=== PATIENT | male | born 1975 | race Caucasian/White ===

== ENCOUNTER 2024-08-30 13:07 | Emergency (ER) | payer BC, SELFPAY ==
[2024-08-30 13:43] LABS: % Basophils 0.5 % (0-2); % Eosinophils 1.1 % (0-6); % Immature Granulocytes 0.2 % (0-0.5); % Lymphocytes 32.7 % (20.5-51.1); % Monocytes 6.9 % (1.7-9.3); % Neutrophils 58.6 % (42.2-75.2); Absolute Eosinophils 0.1 10^3/uL (0-0.7); Absolute Lymphocytes 1.8 10^3/uL (1.2-3.4); Absolute Monocytes 0.4 10^3/uL (0.1-0.6); Absolute Neutrophils 3.3 10^3/uL (1.4-6.5); Hematocrit 45.3 % (39.0-52.0); Hemoglobin 15.2 g/dL (13.0-18.0); Mean Corp Hgb Conc. 33.6 g/dL (33.0-37.0); Mean Corpuscular Volume 86.3 fL (80.0-94.0); Mean Platelet Volume 9.7 fL (7.4-10.4); Nucleated Red Blood Cells % 0 % (-); Platelet Count 315 10^3/uL (130-400); Red Blood Cell Count 5.25 10^6/uL (4.70-6.10); Red Cell Dist. Width 13.3 % (11.5-14.5); White Blood Cell Count 5.6 10^3/uL (4.8-10.8)
[2024-08-30 13:56] LABS: ALT (SGPT) 14 U/L (0-50); AST (SGOT) 16 U/L (17-59); Albumin 4.5 g/dl (3.5-5.0); Alkaline Phosphatase 49 U/L (38-126); Blood Urea Nitrogen 11 mg/dl (9-20); Calcium 10.1 mg/dl (8.4-10.2); Carbon Dioxide 30 mmol/L (22-30); Chloride 103 mmol/L (98-107); Glucose 82 mg/dl (70-99); Potassium 4.5 mmol/L (3.5-5.1); Sodium 141 mmol/L (135-145); Total Bilirubin 0.9 mg/dl (0.2-1.3); eGFR > 60.00
--- NOTE | 2024-08-30 15:41 | ED.GENMED ---
History of Present Illness
<Oh Melo, DO - Last Filed: 08/30/24 15:43>
General
Chief Complaint: Male Genito-Urinary Symptoms
Time Seen by Provider: 08/30/24 15:31
<Jolie Bhagat [employer] - Last Filed: 08/31/24 10:08>
General
Source: patient
Exam Limitations: none
Nursing documentation reviewed up to this point in time: agreed with
History of Present Illness
History of Present Illness:
49 yo male with hx R inguinal hernia repaired 2004 and 2006(not at this hospital), was laying on bed with right leg hanging over the bed with foot on floor, lifted his leg up onto the bed and felt a sudden searing pain in R groin similar to when the
hernia ruptured in the past. Denies trouble urinating. Pain 03/13 now laying on stretcher. He states he feels like it 'went back in.'
Past History
<Jolie Bhagat, [employer] - Last Filed: 08/31/24 10:08>
Past History
ED Past Medical History: Asthma and Other (ADHD)
ED Past Surgical History: Orthopedic (amp right 3rd digit), Urological (Vasectomy) and Other (right hernia repair x 2)
Social History
Tobacco: Non-smoker
Alcohol: Occasional
Drug: None
Personal:
Living: with family
Employment: Employed
Family History
Family History: Other (Family history of diverticulosis)
Review of Systems
<Jolie Bhagat, [employer] - Last Filed: 08/31/24 10:08>
Review of Systems
Allergies reviewed?: Yes
All Other Systems: ROS reviewed and negative except as documented in HPI and ROS
ABD/GI: Denies abdominal pain or nausea
: Denies dysuria or difficulty voiding
Skin: Reports no symptoms
Phy Exam
<Jolie Bhagat, [employer] - Last Filed: 08/31/24 10:08>
Physical Exam
Physical Exam:
GENERAL: No acute distress. A&Ox3.
CONSTITUTIONAL: Afebrile.
RESPIRATORY: Regular respirations, nonlabored, lungs clear.
CARDIOVASCULAR: Regular rate and rhythm, no murmurs, no rubs.
GI: Soft, nontender, normal BS
: Normal-appearing external genitalia, mildly tender right testicle, mildly tender right mons pubis, no palpable masses
MUSCULOSKELETAL: Moves with ease. Well perfused.
SKIN: Warm, dry, pink
PSYCH: Normal mood and affect. Well kept, interactive and appropriate
NEUROLOGIC: Awake, alert and oriented. No focal neurological deficits
Course
<Oh Melo, DO - Last Filed: 08/30/24 15:43>
Orders/Labs/Results
Orders:
Orders
08/30/24 13:29
Complete Blood Count/With Diff Urgent
Comprehensive Metabolic Panel Urgent
08/30/24 15:39
US Groin (Imaging Only) RT Urgent
Comment:
Reason For Exam: feels his R inguinal hernia has popped out
Abnormal Lab Results
08/30/24
13:29
AST 16 L U/L
(17-59)
08/30/24 13:29
08/30/24 13:29
Vital Signs
Initial and Last Documented VS:
Initial Vital Signs
Temp Pulse Resp Pulse Ox
98.6 F 78 18 100
08/30/24 13:20 08/30/24 13:20 08/30/24 13:20 08/30/24 13:20
Last Documented Vital Signs
Temp Pulse Resp BP Pulse Ox
99.2 F 66 18 130/79 98
08/30/24 17:00 08/30/24 17:00 08/30/24 17:00 08/30/24 17:00 08/30/24 17:00
<Jolie Bhagat [employer] - Last Filed: 08/31/24 10:08>
Orders/Labs/Results
Orders:
Orders
08/30/24 13:29
Complete Blood Count/With Diff Urgent
Comprehensive Metabolic Panel Urgent
08/30/24 15:39
US Groin (Imaging Only) RT Urgent
Comment:
Reason For Exam: feels his R inguinal hernia has popped out
Abnormal Lab Results
08/30/24
13:29
AST 16 L U/L
(59)
08/30/24 13:29
08/30/24 13:29
Vital Signs
Initial and Last Documented VS:
Initial Vital Signs
Temp Pulse Resp Pulse Ox
98.6 F 78 18 100
08/30/24 13:20 08/30/24 13:20 08/30/24 13:20 08/30/24 13:20
Last Documented Vital Signs
Temp Pulse Resp BP Pulse Ox
99.2 F 66 18 130/79 98
08/30/24 17:00 08/30/24 17:00 08/30/24 17:00 08/30/24 17:00 08/30/24 17:00
<Jolie Bhagat [employer] - Last Filed: 08/31/24 10:08>
MDM/Problems Addressed
MDM/Problems Addressed:
49 yo male with hx R inguinal hernia repaired 2004 and 2006(not at this hospital), was laying on bed with right leg hanging over the bed with foot on floor, lifted his leg up onto the bed and felt a sudden searing pain in R groin similar to when the
hernia ruptured in the past. Denies trouble urinating. Pain 03/13 now laying on stretcher. He states he feels like it 'went back in.'
CBC, CMP normal
At this time, no significant pain with palpation, no swelling
Dr. Melo in, examined pt and agrees with US, referral to general surgery
4:45 p.m.
US report: IMPRESSION:
No sonographic evidence of right inguinal hernia.
Copy of report given to pt. Referral to general surgery as needed
At discharge pt observed ambulating out with normal gait.
<Jolie Bhagat, [employer] - Last Filed: 08/31/24 10:08>
*Critical Care Note
Total Time (30-74mins, 75-104mins- exclusive of procedures): Not Applicable
ED Attending Note
<Oh Melo, DO - Last Filed: 08/30/24 15:43>
ED Attending Note
Patient seen and examined by attending physician: Yes
ED Attending Note:
I reviewed and agree with history and treatment plan by Kesha Bhagat. My exam revealed 49-year-old male, with no palpable mass or tenderness in right lower quadrant, mild tenderness in the right inguinal canal. Will obtain ultrasound to evaluate
possible hernia.
<Jolie Bhagat [employer] - Last Filed: 08/31/24 10:08>
-
Portions of this chart may have been created with voice recognition software.� Occasional wrong word or��sound alike� substitutions may have occurred due to the inherent limitations of voice recognition software.
Discharge Plan
Departure
Patient Disposition: Home (Routine Discharge)
Date of Disposition: 08/30/24
Time of Disposition: 16:47
Patient with high blood pressure during this ER visit?: No
Condition: Good
Discharge Problem:
Right groin pain
Instructions: Groin hernias, Groin Strain (DC)
Prescriptions:
No Action
sertraline 100 MG tablet
150 mg PO DAILY
dexmethylphenidate [Focalin] 10 MG tablet
10 mg PO BID
lisdexamfetamine [Vyvanse] 40 MG capsule
40 mg PO DAILY
multivitamin-minerals no.55 [Centrum Flavor Burst Adult] 1 EACH tablet,chewable
1 tab PO DAILY
pantoprazole 40 MG tablet,delayed release (DR/EC)
40 mg PO DAILY
oxymetazoline [Afrin Sinus (oxymetazoline)] 30 SPRAYS/15 ML spray,non-aerosol
2 sprays intranasal PRN PRN (Reason: congestion)
hydrocodone-acetaminophen 1 TABLET tablet
1 tab PO Q4HPRN PRN (Reason: moderate to severe pain) Qty: 25 0RF
acetaminophen 325 MG tablet
650 mg PO Q4HWA 0RF
Referrals:
Don Mills MD [Active] - As needed
Paulina Ramirez MD [Family Provider] -
Activity Restrictions/Additional Instructions:
As we discussed, there is no evidence of a right inguinal hernia on your ultrasound.
Ibuprofen 600 mg (with food) every 6 hours as needed for pain.
Avoid lifting over 5 lbs until the area is better
Wear supportive underwear
I have given you the name of a general surgeon if you feel your hernia is bothering you.
Interventions
Interventions:
*Risk Screen - Suicide Last Done: 08/30/24 13:20
*General Assessment Last Done: 08/30/24 13:20
*Neglect/Abuse Screening Last Done: 08/30/24 13:20
*Nursing Disposition Last Done: 08/30/24 17:12
ED-Male Genitourinary Assessment Last Done: 08/30/24 15:30
Discharge Date and Time
Discharge Date/Time: 08/30/24 17:13
Print Language: TELUGU
[2024-08-30 17:00] VITALS: BP 130/79
== END 2024-08-30 17:13 | disposition home or self-care (01) ==
LOC: EMR 13:07
PROVIDERS: Emergency Medicine; EMERGENCY PHYSICIAN Emergency Medicine; FAMILY PHYSICIAN Family Medicine
DX: R10.31 Right lower quadrant pain (principal); F90.9 Attention-deficit hyperactivity disorder, unspecified type; J45.909 Unspecified asthma, uncomplicated; G47.30 Sleep apnea, unspecified; K57.90 Diverticulosis of intestine, part unspecified, without perforation or abscess without bleeding; N48.6 Induration penis plastica; K58.9 Irritable bowel syndrome, unspecified; F41.9 Anxiety disorder, unspecified; Z88.1 Allergy status to other antibiotic agents; Z91.048 Other nonmedicinal substance allergy status; Z87.01 Personal history of pneumonia (recurrent)
CPT/HCPCS: 99284; 76882; 80053; 85025